=== PATIENT | female | born 1990 | race Two or more races ===

== ENCOUNTER 2024-10-29 18:13 | Emergency (ER) | payer BC, MEDICAID, SELFPAY ==
[2024-10-29 19:01] VITALS: BP 125/82; PULSE 74; RESP 16; TEMP 36.8; O2SAT 98; BMI 25.3
--- NOTE | 2024-10-29 19:02 | XR_ITS ---
Examination: Complete OB ultrasound, less than 14 weeks, transabdominal Date and time of exam: October 29, 2024 2139 hours INDICATIONS: Onset vaginal bleeding today Technique: Obstetrical ultrasound images less than 14 weeks performed via transabdominal imaging Findings: A normal shaped single intrauterine gestation is present in the uterus. pole 2.7 cm corresponds to 9 weeks 3 days gestation Lasix and cardiac motion 164 BPM Adjacent subchorionic hemorrhage 24 x 12 mm Ultrasonographic survey of visible structures unremarkable. Amniotic fluid volume appears appropriate for this estimated gestational age. Right ovary 3.4 cm arterial flow Left ovary 5.7 cm arterial flow 5.6 cm cyst. IMPRESSION: Viable intrauterine gestation 9 weeks 3 days Recommend short term follow-up transvaginal study given the subchorionic hemorrhage
--- NOTE | 2024-10-29 19:04 | EDNOTE_ITS ---
ED OB Contraction Preg RMI/HPI General Chief complaint: Vaginal Bleeding Stated complaint: Possible miscarriage Time Seen by Provider: 10/29/24 18:21 Arrival date/time: 10/29/24 18:13 This is a case of 34-year-old female who came into the emergency room due to pelvic pain and vaginal bleeding today patient took a test and it is positive LMP is unknown patient is irregular 1 para 0 patient denies any fever chills therapies this is a Limitations: no limitations Related Data Allergies Allergy/AdvReac Type Severity Reaction Status Date / Time No Known Drug Allergies Allergy Verified 10/29/24 18:17 Review of Systems Constitutional Constitutional: Reports system reviewed and no additional complaints, except as documented Cardiovascular Cardiovascular: Reports system reviewed and no additional complaints, except as documented Respiratory Respiratory: Reports system reviewed and no additional complaints, except as documented Gastrointestinal Gastrointestinal: Reports system reviewed and no additional complaints, except as documented Genitourinary Genitourinary: Reports abnormal vaginal bleeding, Denies difficulty conceiving, Denies difficulty voiding, Denies dysmenorrhea, Denies dyspareunia and Denies dysuria Musculoskeletal Musculoskeletal: Reports system reviewed and no additional complaints, except as documented Past Medical History Social History SMOKING STATUS: Never smoker ED Exam General Limitations: Present no limitations General appearance: Present alert and in no apparent distress Head Head exam: Present atraumatic Eye Eye exam: Present normal appearance, PERRL and EOMI ENT ENT exam: Present normal exam, normal oropharynx and mucous membranes moist Neck Neck exam: Present normal inspection, full ROM and trachea midline Chest Chest inspection: Present normal inspection and symmetric chest wall rise Respiratory Respiratory exam: Present normal lung sounds bilaterally Cardiovascular Cardiovascular exam: Present regular rate, normal rhythm and normal heart sounds Abdominal Exam Abdominal exam: Present soft, normal bowel sounds and other (No CVA tendernessno cva tenderness); Absent tenderness, guarding, rebound, rigidity, diminished bowel sounds or tenderness at [place]Bur[place]'s Point Extremities Exam Extremities exam: Present normal inspection and full ROM Back Exam Back exam: Present normal inspection and full ROM Neurological Exam Neurological exam: Present alert, oriented X3 and CN II-XII intact Psychiatric Psychiatric exam: Present normal affect and normal mood Skin Skin exam: Present warm, dry, intact and normal color Course Quality Measures none Orders Category Date Time Status US OB <= 14 weeks fetus Stat Exams 10/29/24 19:02 Completed ABO/RH Type Stat Lab 10/29/24 19:10 Completed Beta HCG,Quantitative Stat Lab 10/29/24 19:10 Completed CBC Stat Lab 10/29/24 19:10 Completed CMP [Comprehensive Metabolic Panel] Stat Lab 10/29/24 19:10 Completed Urinalysis Stat Lab 10/29/24 19:29 Completed Vital Signs Vital signs: Vital Signs Temperature 98.2 F 10/29/24 19:01 Pulse Rate 74 10/29/24 19:01 Respiratory Rate 16 10/29/24 19:01 Blood Pressure 125/82 10/29/24 19:01 Pulse Oximetry (%) 98 10/29/24 19:01 Oxygen Delivery Method Room Air 10/29/24 19:01 Oxygen saturation 98% on room air WNL Vaginal Bleeding MDM Narrative MDM Narrative: This is a case of 34-year-old female who came into the emergency room due to vaginal bleeding patient took test and it was positive 1 para 0 patient physical examination patient is awake alert oriented not in distress nontoxic looking abdominal exam benign nonsurgical no tenderness no guarding no rebound no rigidity patient vital signs stable afebrile not tachycardic not tachypneic not in distress patient blood test showed no leukocytosis no anemia kidney liver functions normal no [place] [id number] for patient if positive patient ultrasound showed viable 9 weeks patient was advised to follow-up with PCP in 2 days for evaluation and to be referred to OB hospitality housekeeper for checkup he she was also advised to return to the emergency room in 2 days for evaluation for repeat beta-hCG and pelvic ultrasound no sex pelvic rest was also advised increase water intake checkup and continue multivitamins patient understood verbally the discharge instruction patient agreed with the treatment plan and discharge patient was discharged with stable condition and steady gait Patient data External records reviewed:: [facility] previous records Clinical information provided by:: patient Social determinants that could affect healthcare access:: none Patient has the following chronic illnesses:: None How is presenting disease/condition affected by chronic disease/condition?: no chronic disease Evaluation data The following diagnostics were reviewed and interpreted by me:: lab results and radiology exam(s) Lab and/or radiology exams considered but not ordered:: Reviewed Interpretation Summary: None Medications / Prescriptions Medications or Prescriptions considered but not ordered:: Not given Medication administrations:: None Consultations Consultation(s) initiated? (list below): No Diagnosis Vaginal Bleeding Differential Diagnosis: missed , threatened , dysfunctional uterine bleeding and incomplete Most likely diagnosis given after review of the tests above:: Threatened Admission Indicated Admission indicated?: not indicated Admission Request Was there a request for admission?: No Disposition Plan Disposition Plan: Discharge Discharge Attestation Discharge Attestation: The patient and all family members were given an opportunity to ask questions and understood the discharge instructions. Discharge instructions specifically effects, indications for sooner follow up or return to the emergency department, and the expected course of current diagnosis. Patient condition: Stable Discharge Plan Plan Patient Disposition: HOME (Self Care) Discharge Disposition comment: Stable Prescriptions/Referrals Referrals: Erika Perez MD [Primary Care Provider] - In 1 week Problem List Clinical Impression: , threatened Patient/Caregiver Discharge Instructions Other Activity Instructions:: Follow-up with your PCP in 2 days for reevaluation and to be referred to OB hospitality housekeeper as soon as possible for further evaluation and treatment of threatened and for check it is important to return in the emergency room in 2 days for reevaluation and to have repeat beta- hCG and pelvic ultrasound for any worsening symptoms or any emergent concern call 911 or go to the nearest emergency room no sex until cleared by OB hospitality housekeeper pelvic rest is advised continue to take multivitamins increase oral fluid intake Education Materials: ED Possible Miscarriage ... Print Language: Bahamian Stand Alone Forms: Jessie Award Info., Patient Portal Info Letter PA/TONY Supervising Physician ETHEL/TONY Supervising Physician: DR BATISTA
[2024-10-29 19:26] LABS: Basophils % (Auto) 0 % (0-2.5); Eosinophils # (Auto) 0.1 Thou/mm3 (0.0-0.5); Eosinophils % (Auto) 2 % (0-10); Hemoglobin 11.8 g/dL (12.0-16.0); Immature Granulocytes % (Auto) 1 % (0-0); Immature Granulocytes Auto 0.05 Thou/mm3 (0.00-0.00); Lymphocytes # (Auto) 1.6 Thou/mm3 (1.0-4.8); Lymphocytes % (Auto) 19 % (10-50); Mean Corpuscular HGB Conc 33.7 g/dl (31.0-37.0); Mean Corpuscular Hemoglobin 30.5 pg (25.0-35.0); Mean Corpuscular Volume 90 fL (80-100); Monocytes # (Auto) 0.7 Thou/mm3 (0.0-0.8); Monocytes % (Auto) 8 % (0-12); Neutrophils # (Auto) 5.6 Thou/mm3 (1.8-7.7); Neutrophils % (Auto) 70 % (37-80); Nucleated Red Blood Cell % 0 /100 WBC (0); Platelet Count 210 Thou/mm3 (140-440); RDW Standard Deviation 45.2 fL (36.4-46.3); Red Blood Count 3.87 Miln/mm3 (4.00-5.20); White Blood Count 8.1 Thou/mm3 (3.6-11.0)
[2024-10-29 19:38] LABS: Collection Type, Urine Voided; WBC,Urine 0 /hpf (0-5)
[2024-10-29 19:55] LABS: Alanine Aminotransferase 24 U/L (10-49); Albumin, Serum 4.2 gm/dL (3.5-5.0); Albumin/Globulin Ratio 1.4 (1.2-2.2); Alkaline Phosphatase 56 U/L (46-116); Anion Gap 7 (7-16); Aspartate Amino Transferase 28 U/L (0-34); BUN/Creatinine Ratio 11 Ratio (12-20); Bilirubin,Total 0.2 mg/dL (0.3-1.2); Blood Urea Nitrogen 9 mg/dL (9-23); Calcium 9.1 mg/dL (8.3-10.6); Calcium (Corrected) 9.1 mg/dL (8.5-10.1); Carbon Dioxide 21.7 mMol/L (20.0-31.0); Chloride 106 mMol/L (98-107); Creatinine (Component) 0.8 mg/dL (0.6-1.3); Estimated Creatinine Clearance 98.2 mL/min (>60); Glucose 84 mg/dL (74-106); Osmolality,Calculated 267 (275-295); Potassium 3.7 mMol/L (3.4-5.1); Sodium 135 mMol/L (136-145); Total Protein 7.2 gm/dL (5.7-8.2); eGFR > 60 See Note
[2024-10-29 20:02] LABS: Bacteria,Urine Rare; Bilirubin,Urine Negative (Negative); Blood,Urine 1+ (Negative); Clarity,Urine Clear (Clear/Hazy); Color,Urine Lt-Yellow (Lt Yel-Yel); Glucose, Urine Negative (Negative); Ketones,Urine Negative (Negative); Leukocyte Esterase,Urine Negative (Negative); Nitrite,Urine Negative (Negative); Protein,Urine Negative (Neg - Trace); RBC,Urine 10 /hpf (0-3); Specific Gravity,Urine 1.026 (1.001-1.035); Squamous Epithelial Cell,Urine 1 /hpf (0-5); Urobilinogen,Urine Negative mg/dL (0.0-1.0)
[2024-10-29 20:41] LABS: Beta HCG,Quantitative 100494 mIU/mL (<5.0)
--- NOTE | 2024-10-29 22:29 | EDNOTE_ITS ---
ED OB Contraction Preg RMI/HPI General Chief complaint: Vaginal Bleeding Stated complaint: Possible miscarriage Time Seen by Provider: 10/29/24 18:21 Arrival date/time: 10/29/24 18:13 This is a case of 34-year-old female who came in the emergency room due to vaginal bleeding today with blood clots patient check test and positive LMP unknown 1 para 0 denies any other symptoms denies any urinary symptoms pelvic cramping noted Limitations: no limitations Related Data Allergies Allergy/AdvReac Type Severity Reaction Status Date / Time No Known Drug Allergies Allergy Verified 10/29/24 18:17 Review of Systems Constitutional Constitutional: Reports system reviewed and no additional complaints, except as documented Cardiovascular Cardiovascular: Reports system reviewed and no additional complaints, except as documented Respiratory Respiratory: Reports system reviewed and no additional complaints, except as documented Gastrointestinal Gastrointestinal: Reports system reviewed and no additional complaints, except as documented Genitourinary Genitourinary: Reports as per HPI and Reports abnormal vaginal bleeding Musculoskeletal Musculoskeletal: Reports system reviewed and no additional complaints, except as documented Past Medical History Social History SMOKING STATUS: Never smoker ED Exam General Limitations: Present no limitations General appearance: Present alert and in no apparent distress Eye Eye exam: Present normal appearance, PERRL and EOMI ENT ENT exam: Present normal exam, normal oropharynx and mucous membranes moist Neck Neck exam: Present normal inspection and full ROM Chest Chest inspection: Present normal inspection and symmetric chest wall rise Respiratory Respiratory exam: Present normal lung sounds bilaterally; Absent respiratory distress, wheezes, stridor or accessory muscle use Cardiovascular Cardiovascular exam: Present regular rate and normal rhythm Abdominal Exam Abdominal exam: Present soft; Absent distention, tenderness, guarding, rebound, rigidity, normal bowel sounds or diminished bowel sounds Extremities Exam Extremities exam: Present normal inspection and full ROM Neurological Exam Neurological exam: Present alert, oriented X3, CN II-XII intact and normal gait Course Quality Measures none Orders Category Date Time Status US OB <= 14 weeks fetus Stat Exams 10/29/24 19:02 Completed ABO/RH Type Stat Lab 10/29/24 19:10 Completed Beta HCG,Quantitative Stat Lab 10/29/24 19:10 Completed CBC Stat Lab 10/29/24 19:10 Completed CMP [Comprehensive Metabolic Panel] Stat Lab 10/29/24 19:10 Completed Urinalysis Stat Lab 10/29/24 19:29 Completed Vital Signs Vital signs: Vital Signs Temperature 98.2 F 10/29/24 19:01 Pulse Rate 74 10/29/24 19:01 Respiratory Rate 16 10/29/24 19:01 Blood Pressure 125/82 10/29/24 19:01 Pulse Oximetry (%) 98 10/29/24 19:01 Oxygen Delivery Method Room Air 10/29/24 19:01 Oxygen saturation 98% WNL Vaginal Bleeding MDM Narrative MDM Narrative: This is a case of 34-year-old female who came in the emergency room due to abnormal vaginal bleeding patient is LMP is unknown 1 para 0 associated symptoms is pelvic cramping physical examination patient is awake alert oriented not in distress nontoxic looking abdominal exam is benign nonsurgical no guarding no rebound no rigidity no CVA tenderness no signs and symptoms of sepsis no signs and symptoms of dehydration blood test showed CBC no leukocytosis no anemia CMP no electrolyte imbalance kidney function and liver function is normal urinalysis is normal no urinary tract infection patient is A+ patient beta-hCG is [id number] patient ultrasound showed viable intrauterine with subchorionic hemorrhage 9 weeks at this point I have a long discussion with the patient patient need to see a PCP to be referred to OB plant operator/shift supervisor for further evaluation and treatment and for checkup it is important to return in the emergency room in 2 days for evaluation for repeat beta-hCG and pelvic ultrasound any worsening symptoms or any emergent concerns she will return in the emergency room immediately or call 911 patient is advised to have pelvic rest and no sex until cleared primary care physician she will continue the multiple vitamins and increase water intake patient understood verbally the discharge instruction and agreed with the treatment plan and discharge patient discharged with stable condition with steady gait Patient data External records reviewed:: [facility] previous records Clinical information provided by:: patient Social determinants that could affect healthcare access:: none Patient has the following chronic illnesses:: None How is presenting disease/condition affected by chronic disease/condition?: no chronic disease Evaluation data The following diagnostics were reviewed and interpreted by me:: lab results and radiology exam(s) Lab and/or radiology exams considered but not ordered:: Reviewed Interpretation Summary: Normal no medication Medications / Prescriptions Medications or Prescriptions considered but not ordered:: No medication Medication administrations:: None Consultations Consultation(s) initiated? (list below): No Diagnosis Vaginal Bleeding Differential Diagnosis: missed , threatened and menometrorrhagia Most likely diagnosis given after review of the tests above:: Threatened Admission Indicated Admission indicated?: not indicated Admission Request Was there a request for admission?: No Disposition Plan Disposition Plan: Discharge Discharge Attestation Discharge Attestation: The patient and all family members were given an opportunity to ask questions and understood the discharge instructions. Discharge instructions specifically effects, indications for sooner follow up or return to the emergency department, and the expected course of current diagnosis. Patient condition: Stable Discharge Plan Plan Patient Disposition: HOME (Self Care) Discharge Disposition comment: Stable Prescriptions/Referrals Referrals: Erika Perez MD [Primary Care Provider] - In 1 week Problem List Clinical Impression: , threatened Patient/Caregiver Discharge Instructions Other Activity Instructions:: Follow-up with your PCP in 2 days for reevaluation and to be referred to OB plant operator/shift supervisor as soon as possible for further evaluation and treatment of threatened and for check it is important to return in the emergency room in 2 days for reevaluation and to have repeat beta- hCG and pelvic ultrasound for any worsening symptoms or any emergent concern call 911 or go to the nearest emergency room no sex until cleared by OB plant operator/shift supervisor pelvic rest is advised continue to take multivitamins increase oral fluid intake Education Materials: ED Possible Miscarriage ... Print Language: Albanian Stand Alone Forms: Jessie Award Info., Patient Portal Info Letter ETHEL/TONY Supervising Physician ETHEL/TONY Supervising Physician: DR BATISTA
== END 2024-10-29 22:52 | disposition home or self-care (01) ==
PROVIDERS: Nurse Practitioner Family; Emergency Provider Emergency Medicine; PCP Internal Medicine
DX: O20.0 Threatened abortion (principal); Z3A.00 Weeks of gestation of pregnancy not specified
CPT/HCPCS: 36415; 76801; 80053; 81001; 84702; 85025; 86900; 86901; 99284

== ENCOUNTER → 2025-02-18 | Outpatient (CLI) | payer BC, MEDICAID, SELFPAY ==
--- NOTE | 2025-02-18 14:30 | XR_ITS ---
Examination: Complete OB ultrasound greater than 14 weeks Date and time of exam: February 18, 2025, 1418 hours INDICATIONS: Size dates discrepancy second trimester Findings: Viable intrauterine single fetus with single amniotic sac presentation breech spine maternal left. Cardiac motion 147 BPM. Placenta anterior grade 2. Umbilical cord insertion seen. Amniotic fluid index 14.4 cm. Ovaries obscured by bowel gas.. Composite estimated gestational age based on BPD, head circumference, abdominal circumference, femur length is 26 weeks 2 days. Estimated weight 954 g. Survey of intracranial anatomy, spinal anatomy, abdominal anatomy, four-chamber heart performed with no abnormalities identified. Impression: Viable intrauterine gestation breech presentation.
== END | disposition home or self-care (01) ==
LOC: CDIM 14:08
PROVIDERS: PCP Obstetrics & Gynecology; Referring Provider Obstetrics & Gynecology; Visit Provider Obstetrics & Gynecology
DX: O32.1XX0 Maternal care for breech presentation, not applicable or unspecified (principal); Z3A.26 26 weeks gestation of pregnancy
CPT/HCPCS: 76805

== ENCOUNTER 2025-03-29 10:48 | Outpatient (AMB) | payer BC, MEDICAID, SELFPAY ==
[2025-03-29 10:52] VITALS: BP 126/79; PULSE 84; RESP 16; TEMP 36.3; O2SAT 98; BMI 28.7
--- NOTE | 2025-03-29 10:52 | AMB.OBINITIA ---
Vital Signs 03/29/25 10:52 Height 1.7 m Height Method Stated Weight 83.007 kg Weight Measurement Method Standing Scale BMI 28.7 BP 126/79 Blood Pressure Source Automatic Cuff Blood Pressure Location Left Upper Arm Position Sitting Respiration 16 Pulse 84 Pulse Source Monitor Temp 97.4 F Temp Source Oral Pulse Oximetry (%) 98 Oxygen Delivery Method Room Air Allergies/Home Meds Allergies & Medications Allergies No Known Drug Allergies Allergy (Verified 03/29/25 10:57) Medication Reconciliation No Known Home Medications 03/29/25 [History Confirmed 03/29/25] Intake Visit Data Collection New Patient or Established: Established Patient (seen at [facility] within 3 years) Reason for Visit:: TRANSFER INITIAL CARE Seen by Clinical Staff ONLY (RN/MA): No Technology Sales Representative Required: No Do You Feel Safe at Home: Yes Authorities Contacted: N/A PCP or OBGYN visit in last 3 months: Yes Hx Now: Yes Are you currently on any form of Control: No Last menstrual period: 08/13/24 Pain Present Currently: No Pain Scale Used: Isaacs-Villanueva/Numerical Pain scale:: 0 Smoking Status Smoking Status: Never smoker Questionnaires Covid-19 Vaccine Questionnaire Has patient been vacinated for Covid-19 Have you been vacinated for Covid-19: No PHQ-9 PHQ-2 Over the last 2 weeks, how often have you been bothered by any of the following problems? 1. Little interest or pleasure in doing things: not at all 2. Feeling down, depressed, or hopeless: not at all Total score: 0 PHQ-9 3. Trouble falling or staying asleep, or sleeping too much: Not at all 4. Feeling tired or having little energy: Not at all 5. Poor appetite or overeating: Not at all 6. Feeling bad about yourself - or that you are a failure or have let yourself or your family down: Not at all 7. Trouble concentrating on things, such as reading the newspaper or watching television: Not at all 8. Moving or speaking so slowly that other people could have noticed? - Or the opposite - being so fidgety or restless that you have been moving around a lot more than usual: not at all 9. Thoughts that you would be better off or of hurting yourself in some way: Not at all Total score: 0 Source: Developed by Drs. Aiden Meraz, Keisha Bush, Saul Gutierrez and colleagues, with an educational ziyad from [employer]. Depression screen completed yes Social History Living Situation History Lives With: Family Housing: House Tobacco History Smoking Status: Never smoker Second Hand Smoke Exposure: No Alcohol History Alcohol Intake: Never Domestic Abuse History Do You Feel Safe at Home: Yes History of Present Illness HPI Narrative Debbie Chacon, , presents for routine visit at 31 weeks gestation. No contractions, LOF, VB and reports good FM. Denies AL, VC, and epigastric pain. 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 - details: - Last menstrual period: August 13, 2024 - Estimated due date: May 31, 2025 (based on 4-lurp-7-day ultrasound) - Fetus gender: Male - Patient reports no specific complaints or symptoms - Adherence to care evident from regular lab work and ultrasounds - Ultrasound (10/29/2024): Gestational age 9 weeks and 3 days, EAGLE 05/31/2025 - Date: 12/01/2024 (1st OB panel) - Urinalysis: Within normal limits - NIPT: Negative for trisomy, sex male - CBC: Hemoglobin 11.4 g/dL, Hematocrit 35.1%, Platelets 200 - Urine drug screen: Negative - Hepatitis A, B, and C: Negative - Gonorrhea and chlamydia: Negative - Blood group: A positive - Rh factor: Positive - RPR: Nonreactive - Hemoglobin A1C: 4.8% - Rubella: Immune - HIV: Nonreactive - Date: 01/11/2025 (2nd lab panel) - SMA: Negative - AFP: Negative - CF screening: Positive, patient heterozygous for one cystic fibrosis gene - Date: 02/18/2025 - CBC: Hemoglobin 11.7 g/dL, Hematocrit 36.6%, Platelets 205 - Urinalysis: Within normal limits - Gonorrhea and chlamydia: Negative - RPR: Nonreactive - Gestational diabetes one-hour screen: 130 mg/dL OB Initial Visit OB Flowsheet OB Flowsheet Initial Weight: Not Recorded Date <del>?</del> EGA Weight BP Alb Glu CTX Pres Fundal ht FHR Mov Dilation Station Effacement Hx Notes Visit Note 03/29/25 <del>?</del> 31w 0d 83.007 kg 126/79 absent cephalic 143 Debbie Chacon, at 31 weeks gestation, presents for transfer of care from Dr. Torres. EAGLE is 05/31/2025 based on a 9w3d ultrasound. has been uncomplicated. 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 heart rate today is 143 bpm. Labs including NIPT, CBC, OB panel, STI screen, and glucose tolerance test (130) are normal. Recent ultrasound suggests fetus may be >9 lbs at term. Patient is expecting a male infant named Colby. Intrauterine at 31 weeks: Continue care. Follow-up in 2 weeks, then weekly at 36 weeks. Plan for ultrasound on 05/06/2025 to assess growth. GBS culture and cervical check at 36 weeks. Consider induction at 39 weeks if large for gestational age. CF carrier status: No further testing needed (partner negative). Labs: All labs within normal limits. Continue routine monitoring. Menstrual History Menstrual reliability: definite Flow: normal Menstrual regularity: irregular Monthly: No Age at menarche: 15 On control pills at conception: No Associated symptoms (LMP): Denies amenorrhea, nausea, vomiting, fatigue, breast tenderness, urinary frequency, irritability, bloating or other OB History : 2 Para: 1 Infection History & Risk Evaluation History of STDs: none Genetic Screening & History Genetic Screening/Teratology Counseling - Includes patient, baby's father, or anyone in either family with: 1. Patient's age 35 years or older as of estimated date of delivery: No 2. Thalassemia (Bengali, Ukrainian, Mediterranean, or Background); MCV less than 80: No 3. Neural Tube Defect (Meningomyelocele, Spina Bifida, or Anencephaly): No 4. Congenital Heart Defect: No 5. Down Syndrome: No 6. Saúl-Sachs (Ashkenazi Jew, Cajun, [place]an [place]): No 7. Petrona Disease (Ashkenazi Jew): No 8. Familial Dysautonomia (Ashkenazi Jew): No 9. Sickle Cell Disease or Trait (): No 10. Hemophilia or other blood disorders: No 11. Muscular Dystrophy: No 12. Cystic Fibrosis: No 13. Mary Beth's Chorea: No 14. Mental Retardation/Autism: No 15. Other inherited genetic or chromosomal disorder: No 16. Maternal Metabolic Disorder (EG,TYPE 1 Diabetes, PKU): No 17. Patient or baby's father had a child with defects not listed above: No 18. Recurrent loss or a stillbirth: No 19. Medications (including supplements, vitamins, herbs or otc drugs)/illicit/recreational drugs/alcohol since last menstrual period: No 20. Any other: No Infection History 1. Live with someone with TB or exposed to TB: No 2. Rash or viral illness since last menstrual period: No 3. Hepatitis B,C: No Other (see comments) Source: [employer] Review of Systems Constitutional Constitutional: Denies fatigue Gastrointestinal Gastrointestinal: Denies bloating, Denies nausea and Denies vomiting Genitourinary Genitourinary: Denies amenorrhea and Denies urinary frequency Psychiatric Psychiatric: Denies irritability Endocrine Endocrine: Denies fatigue Exam General Limitations: no limitations General Appearance: alert, in no apparent distress and comfortable Head Head exam: atraumatic and normocephalic Eye Eye exam: Present normal appearance, PERRL and EOMI Neck Neck exam: Present normal inspection and full ROM Chest Chest inspection: Present normal inspection and symmetric chest wall rise; Absent tenderness Resp Respiratory exam: Present normal lung sounds bilaterally; Absent respiratory distress Card Cardiovascular exam: Present regular rate and normal rhythm Abdominal Abdominal exam: Present soft and normal bowel sounds; Absent tenderness, guarding, rebound or rigidity Neuro Neurological exam: Present alert and oriented X3 Psych Psychiatric exam: Present normal affect Office Procedures OBC Clinic LOC & Office Proc's Nursing/Assessment Patient Status: Established Patient OB Clinic Nursing Assessment: Medication Reconciliation, Update PMH in EMR and Vital Signs OB Clinic Coordination of Care: Complex Care and Chronic Disease 1-5, Consent,records obtained, informed consent, Education Simp Pt/Fam, 1 Ins Authorization, Lab and Imaging orders, Results/Orders obtained and Staff clarify orders Special Needs: Heart tones Established Patient Charge Established Patient Point Assignment: 150 Established Patient Point Charge: EP Level 4 (120-155) Assessment & Plan Diagnosis / Problem List (1) Supervision of high risk , unspecified, third trimester: Status: Acute (2) Cystic fibrosis carrier: Status: Acute (3) Maternal care for excessive growth, third trimester, not applicable or unspecified: Status: Acute Plan Problem List - , 31 weeks gestation - Cystic fibrosis carrier Assessment at 31 weeks gestation based on 4-afzg-0-day ultrasound (EAGLE 05/31/2025), transferring care. Cystic fibrosis carrier (heterozygous for one CF gene). Labs within normal limits: NIPT negative for trisomy, hemoglobin 11.7, hematocrit 36.6, platelets 205, urinalysis WNL, GBS/chlamydia negative, RPR nonreactive, gestational diabetes screen 130. Blood type A positive, Rh positive. male gender confirmed. Normal heart rate at 143 bpm. Potential macrosomia suspected, with estimated weight of 9 pounds. Plan - Follow-up appointment in 2 weeks - Ultrasound scheduled for [facility] 06, 2025 at [facility] to check baby's growth - Group B strep culture swab at 36 weeks - Weekly appointments starting from 36 weeks - Cervical check, membrane sweep, and consideration of induction at 39 weeks - Delivery to be attended by Dr. De Souza, Dr. Garcia, or Dr. Young, depending on who is electronic publishing specialist 1. Progress Reviewed gestational age, growth, and heart rate. Planned frequent visits (every 2 weeks until 36 weeks, then weekly). 2. Instructed patient to monitor movements and report decreases immediately. 3. Testing Counseled on routine third-trimester labs per guidelines. Discussed potential need for ultrasound or monitoring based on risk factors. 4. Preeclampsia Precaution Educated on preeclampsia signs: severe headache, vision changes, right upper quadrant pain, sudden swelling. Advised urgent reporting of symptoms and discussed blood pressure monitoring if high risk. 5. Labor Precautions Reviewed labor signs: regular contractions, pelvic pressure, back pain, bleeding, or fluid leakage. Instructed to seek immediate care for these symptoms. 6. Lifestyle and Delivery Preparation Reinforced vitamins, nutrition, and safe activity. Discussed plan, pain management, and . Advised on labor preparation (e.g., hospital bag) and expectations. 7. Psychosocial Support Assessed emotional well-being and offered resources for mental health or parenting support.
== END 2025-03-29 11:11 | disposition home or self-care (01) ==
LOC: HODSOBC 10:48
PROVIDERS: Supervising Provider Obstetrics & Gynecology; Visit Provider Obstetrics & Gynecology
DX: O09.893 Supervision of other high risk pregnancies, third trimester (principal); O36.63X0 Maternal care for excessive fetal growth, third trimester, not applicable or unspecified; Z14.1 Cystic fibrosis carrier; Z3A.31 31 weeks gestation of pregnancy
CPT/HCPCS: 99214; G0463

== ENCOUNTER 2025-04-19 11:10 | Outpatient (AMB) | payer BC, MEDICAID, SELFPAY ==
[2025-04-19 11:23] VITALS: BP 109/70; PULSE 96; RESP 18; TEMP 36.2; O2SAT 98; BMI 29.7
--- NOTE | 2025-04-19 11:23 | OBCLNT_ITS ---
Vital Signs 04/19/25 11:23 Height 1.7 m Height Method Stated Weight 85.899 kg Weight Measurement Method Standing Scale BMI 29.7 BP 109/70 Blood Pressure Source Automatic Cuff Blood Pressure Location Left Upper Arm Position Sitting Respiration 18 Pulse 96 Pulse Source Monitor Temp 97.2 F Temp Source Oral Pulse Oximetry (%) 98 Oxygen Delivery Method Room Air Allergies/Home Meds Allergies & Medications Allergies No Known Drug Allergies Allergy (Verified 04/19/25 11:25) Medication Reconciliation No Known Home Medications 03/29/25 [History Confirmed 04/19/25] Intake Visit Data Collection New Patient or Established: Established Patient (seen at [facility] within 3 years) Reason for Visit:: OBC Seen by Clinical Staff ONLY (RN/MA): No Senior Sql Server Developer Required: No Do You Feel Safe at Home: Yes Authorities Contacted: N/A PCP or OBGYN visit in last 3 months: Yes Date of Last PCP or OBGYN visit: 03/29/25 Hx Now: Yes Are you currently on any form of Control: No Pain Present Currently: No Pain Scale Used: Isaacs-Villanueva/Numerical Pain scale:: 0 Smoking Status Smoking Status: Never smoker Immunizations Flu Vaccine in the Last 12 Months: No Flu Vaccine Exclusion Criteria: No Exclusion Criteria Questionnaires Covid-19 Vaccine Questionnaire Has patient been vacinated for Covid-19 Have you been vacinated for Covid-19: No PHQ-9 PHQ-2 Over the last 2 weeks, how often have you been bothered by any of the following problems? 1. Little interest or pleasure in doing things: not at all 2. Feeling down, depressed, or hopeless: not at all Total score: 0 PHQ-9 3. Trouble falling or staying asleep, or sleeping too much: Not at all 4. Feeling tired or having little energy: Not at all 5. Poor appetite or overeating: Not at all 6. Feeling bad about yourself - or that you are a failure or have let yourself or your family down: Not at all 7. Trouble concentrating on things, such as reading the newspaper or watching television: Not at all 8. Moving or speaking so slowly that other people could have noticed? - Or the opposite - being so fidgety or restless that you have been moving around a lot more than usual: not at all 9. Thoughts that you would be better off or of hurting yourself in some way: Not at all Total score: 0 If you checked off any problems, how difficult have these problems made it for you to do your work, take care of things at home, or get along with other people?: not difficult at all Source: Developed by Drs. Aiden Meraz, Keisha Bush, Saul Gutierrez and colleagues, with an educational ziyad from [employer]. Depression screen completed yes Social History Living Situation History Lives With: Family Housing: House Tobacco History Smoking Status: Never smoker Second Hand Smoke Exposure: No Alcohol History Alcohol Intake: Never Domestic Abuse History Do You Feel Safe at Home: Yes Care OB Visit Log OB Flowsheet Initial Weight: Not Recorded Date -?-?-?-?-?-?-?-?-?-?-?-?- EGA Weight BP Alb Glu CTX Pres Fundal ht FHR Mov Dilation Station Effacement Hx Notes Visit Note 03/29/25 -?-?-?-?-?-?-?-?-?-?-?-?- 31w 0d 83.007 kg 126/79 absent cephalic 143 Debbie Chacon, at 31 weeks gestation, presents for transfer of care from Dr. Torres. EAGLE is 05/31/2025 based on a 9w3d ultrasound. has been uncomplicated. 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 heart rate today is 143 bpm. Labs including NIPT, CBC, OB panel, STI screen, and glucose tolerance test (130) are normal. Recent ultrasound suggests fetus may be >9 lbs at term. Patient is expecting a male named Colby. Intrauterine at 31 weeks: Continue care. Follow-up in 2 weeks, then weekly at 36 weeks. Plan for ultrasound on 05/06/2025 to assess growth. GBS culture and cervical check at 36 weeks. Consider induction at 39 weeks if large for gestational age. CF carrier status: No further testing ne eded (partner negative). Labs: All labs within normal li mits. Continue routine monitoring. 04/19/25 -?-?-?-?-?-?-?-?-?-?-?-?- 34w 0d 85.899 kg 109/70 absent cephalic 145 - Debbie Chacon is a 2 para 1 female at 34 weeks and 0 days gestation presenting for routine visit. - She is a cystic fibrosis carrier. - She reports no contractions or issues. - She has work-related paperwork that ne eds to be completed with a requested start date of May 06. - G BS culture to be performed at next appointment - Follow-up appointment scheduled in 2 w eeks - Work forms completed with start date o f May 06, extending to 6 weeks with ability to amend dates as needed EAGLE Calculator Estimated Delivery Date Method Current WG Current Estimate 05/31/25 Ultrasound #1 34w 0d Other Estimates 05/20/25 LMP (Certain) 35w 4d 05/25/25 Ultrasound #2 34w 6d Notes Visit Date: 03/29/25 Last Updated by: Eldon De Souza MD - Ultrasound (10/29/2024): Gestational age 9 weeks and 3 days, EAGLE 05/31/2025 - Date: 12/01/2024 (1st OB panel) - Urinalysis: Within normal limits - NIPT: Negative for trisomy, sex male - CBC: Hemoglobin 11.4 g/dL, Hematocrit 35.1%, Platelets 200 - Urine drug screen: Negative - Hepatitis A, B, and C: Negative - Gonorrhea and chlamydia: Negative - Blood group: A positive - Rh factor: Positive - RPR: Nonreactive - Hemoglobin A1C: 4.8% - Rubella: Immune - HIV: Nonreactive - Date: 01/11/2025 (2nd lab panel) - SMA: Negative - AFP: Negative - CF screening: Positive, patient heterozygous for one cystic fibrosis gene - Date: 02/18/2025 - CBC: Hemoglobin 11.7 g/dL, Hematocrit 36.6%, Platelets 205 - Urinalysis: Within normal limits - Gonorrhea and chlamydia: Negative - RPR: Nonreactive - Gestational diabetes one-hour screen: 130 mg/dL Office Procedures OBC Clinic LOC & Office Proc's Nursing/Assessment Patient Status: Established Patient OB Clinic Nursing Assessment: Medication Reconciliation, Update PMH in EMR and Vital Signs OB Clinic Coordination of Care: Consent,records obtained, informed consent, Education Simp Pt/Fam, Lab and Imaging orders, Results/Orders obtained and Staff clarify orders Special Needs: Heart tones Established Patient Charge Established Patient Point Assignment: 110 Established Patient Point Charge: EP Level 3 (80-115) Assessment & Plan Diagnosis / Problem List (1) Maternal care for excessive growth, third trimester, not applicable or unspecified: Status: Acute (2) Cystic fibrosis carrier: Status: Acute (3) Supervision of high risk , unspecified, third trimester: Status: Acute Plan Problem List - Cystic fibrosis carrier - at 34 weeks gestation Plan - GBS culture to be performed at next appointment - Follow-up appointment scheduled in 2 weeks - Work forms completed with start date of May 06, extending to 6 weeks with ability to amend dates as needed 1. Progress Reviewed gestational age, growth, and heart rate. Planned frequent visits (every 2 weeks until 36 weeks, then weekly). 2. Instructed patient to monitor movements and report decreases immediately. 3. Testing Counseled on routine third-trimester labs per guidelines. Discussed potential need for ultrasound or monitoring based on risk factors. 4. Preeclampsia Precaution Educated on preeclampsia signs: severe headache, vision changes, right upper quadrant pain, sudden swelling. Advised urgent reporting of symptoms and discussed blood pressure monitoring if high risk. 5. Labor Precautions Reviewed labor signs: regular contractions, pelvic pressure, back pain, bleeding, or fluid leakage. Instructed to seek immediate care for these symptoms. 6. Lifestyle and Delivery Preparation Reinforced vitamins, nutrition, and safe activity. Discussed plan, pain management, and . Advised on labor preparation (e.g., hospital bag) and expectations. 7. Psychosocial Support Assessed emotional well-being and offered resources for mental health or parenting support.
== END 2025-04-19 11:37 | disposition home or self-care (01) ==
LOC: HODSOBC 11:10
PROVIDERS: Supervising Provider Obstetrics & Gynecology; Visit Provider Obstetrics & Gynecology
DX: O09.893 Supervision of other high risk pregnancies, third trimester (principal); O36.63X0 Maternal care for excessive fetal growth, third trimester, not applicable or unspecified; Z14.1 Cystic fibrosis carrier; Z3A.34 34 weeks gestation of pregnancy
CPT/HCPCS: 99213; G0463

== ENCOUNTER 2025-05-04 08:14 | Outpatient (AMB) | payer BC, MEDICAID, SELFPAY ==
[2025-05-04 08:36] VITALS: BP 107/71; PULSE 86; RESP 16; TEMP 36.6; O2SAT 97; BMI 30.4
--- NOTE | 2025-05-04 08:36 | OBCLNT_ITS ---
Vital Signs 05/04/25 08:36 Height 1.7 m Height Method Stated Weight 88.054 kg Weight Measurement Method Standing Scale BMI 30.4 BP 107/71 Blood Pressure Source Automatic Cuff Blood Pressure Location Left Upper Arm Position Sitting Respiration 16 Pulse 86 Pulse Source Monitor Temp 97.8 F Temp Source Oral Pulse Oximetry (%) 97 Oxygen Delivery Method Room Air Allergies/Home Meds Allergies & Medications Allergies No Known Drug Allergies Allergy (Verified 05/04/25 08:37) Medication Reconciliation No Known Home Medications 03/29/25 [History Confirmed 05/04/25] Intake Visit Data Collection New Patient or Established: Established Patient (seen at [facility] within 3 years) Reason for Visit:: CARE/ NEEDS GBS Seen by Clinical Staff ONLY (RN/MA): No Utilities Ground Worker Required: No Do You Feel Safe at Home: Yes Authorities Contacted: N/A PCP or OBGYN visit in last 3 months: Yes Hx Now: Yes Are you currently on any form of Control: No Pain Present Currently: No Pain Scale Used: Isaacs-Villanueva/Numerical Pain scale:: 0 Smoking Status Smoking Status: Never smoker Immunizations Flu Vaccine in the Last 12 Months: Yes Flu Vaccine Exclusion Criteria: Already Received Questionnaires Covid-19 Vaccine Questionnaire Has patient been vacinated for Covid-19 Have you been vacinated for Covid-19: Yes PHQ-9 PHQ-2 Over the last 2 weeks, how often have you been bothered by any of the following problems? 1. Little interest or pleasure in doing things: not at all 2. Feeling down, depressed, or hopeless: not at all Total score: 0 PHQ-9 3. Trouble falling or staying asleep, or sleeping too much: Not at all 4. Feeling tired or having little energy: Not at all 5. Poor appetite or overeating: Not at all 6. Feeling bad about yourself - or that you are a failure or have let yourself or your family down: Not at all 7. Trouble concentrating on things, such as reading the newspaper or watching television: Not at all 8. Moving or speaking so slowly that other people could have noticed? - Or the opposite - being so fidgety or restless that you have been moving around a lot more than usual: not at all 9. Thoughts that you would be better off or of hurting yourself in some way: Not at all Total score: 0 Source: Developed by Drs. Aiden Meraz, Keisha Bush, Saul Gutierrez and colleagues, with an educational ziyad from [employer]. Depression screen completed yes Social History Living Situation History Lives With: Family Housing: House Tobacco History Smoking Status: Never smoker Second Hand Smoke Exposure: No Alcohol History Alcohol Intake: Never Domestic Abuse History Do You Feel Safe at Home: Yes Care OB Visit Log OB Flowsheet Initial Weight: Not Recorded Date -?-?-?-?-?-?-?-?-?-?-?-?- EGA Weight BP Alb Glu CTX Pres Fundal ht FHR Mov Dilation Station Effacement Hx Notes Visit Note 03/29/25 -?-?-?-?-?-?-?-?-?-?-?-?- 31w 0d 83.007 kg 126/79 absent cephalic 143 Debbie Chacon, at 31 weeks gestation, presents for transfer of care from Dr. Torres. EAGLE is 05/31/2025 based on a 9w3d ultrasound. has been uncomplicated. 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 heart rate today is 143 bpm. Labs including NIPT, CBC, OB panel, STI screen, and glucose tolerance test (130) are normal. Recent ultrasound suggests fetus may be >9 lbs at term. Patient is expecting a male named Colby. Intrauterine at 31 weeks: Continue care. Follow-up in 2 weeks, then weekly at 36 weeks. Plan for ultrasound on 05/06/2025 to assess growth. GBS culture and cervical check at 36 weeks. Consider induction at 39 weeks if large for gestational age. CF carrier status: No further testing ne eded (partner negative). Labs: All labs within normal li mits. Continue routine monitoring. 04/19/25 -?-?-?-?-?-?-?-?-?-?-?-?- 34w 0d 85.899 kg 109/70 absent cephalic 145 - Debbie Chacon is a 2 para 1 female at 34 weeks and 0 days gestation presenting for routine visit. - She is a cystic fibrosis carrier. - She reports no contractions or issues. - She has work-related paperwork that ne eds to be completed with a requested start date of May 06. - G BS culture to be performed at next appointment - Follow-up appointment scheduled in 2 w eeks - Work forms completed with start date o f May 06, extending to 6 weeks with ability to amend dates as needed 05/04/25 -?-?-?-?-?-?-?--?-?-?-?-?- 36w 1d 88.054 kg 107/71 absent cephalic 150 - She reports that the baby is active. - She denies any leaking or bleeding. - weight was estimated at 6 pounds 14 ounces at current gestational age. - Baby is noted to be in head-down posit ion, which represents a change from the previous visit when the baby was not head-down. - Continue weekly visits - Obtain and scan [facility] Repo rt - Patient to self-collect GBS swab at [facility] - Complete and sign family medical leave paperwork for patient's employer ([employer]) - Schedule next appointment for followin g week EAGLE Calculator Estimated Delivery Date Method Current WG Current Estimate 05/31/25 Ultrasound #1 36w 1d Other Estimates 05/20/25 LMP (Certain) 37w 5d 05/25/25 Ultrasound #2 37w 0d Notes Visit Date: 03/29/25 Last Updated by: Eldon De Souza MD - Ultrasound (10/29/2024): Gestational age 9 weeks and 3 days, EAGLE 05/31/2025 - Date: 12/01/2024 (1st OB panel) - Urinalysis: Within normal limits - NIPT: Negative for trisomy, sex male - CBC: Hemoglobin 11.4 g/dL, Hematocrit 35.1%, Platelets 200 - Urine drug screen: Negative - Hepatitis A, B, and C: Negative - Gonorrhea and chlamydia: Negative - Blood group: A positive - Rh factor: Positive - RPR: Nonreactive - Hemoglobin A1C: 4.8% - Rubella: Immune - HIV: Nonreactive - Date: 01/11/2025 (2nd lab panel) - SMA: Negative - AFP: Negative - CF screening: Positive, patient heterozygous for one cystic fibrosis gene - Date: 02/18/2025 - CBC: Hemoglobin 11.7 g/dL, Hematocrit 36.6%, Platelets 205 - Urinalysis: Within normal limits - Gonorrhea and chlamydia: Negative - RPR: Nonreactive - Gestational diabetes one-hour screen: 130 mg/dL Office Procedures OBC Clinic LOC & Office Proc's Nursing/Assessment Patient Status: Established Patient OB Clinic Nursing Assessment: Medication Reconciliation, Update PMH in EMR and Vital Signs OB Clinic Coordination of Care: Complex Care and Chronic Disease 1-5, Consent,records obtained, informed consent, Education Simp Pt/Fam, 1 Ins Authorization, Lab and Imaging orders, Results/Orders obtained and Staff clarify orders Special Needs: Heart tones Miscellaneous Interventions: Culture Specimen Collection Established Patient Charge Established Patient Point Assignment: 165 Established Patient Point Charge: EP Level 5 (160-above) Assessment & Plan Diagnosis / Problem List (1) Maternal care for excessive growth, third trimester, not applicable or unspecified: Status: Acute (2) Supervision of high risk , unspecified, third trimester: Status: Acute (3) Cystic fibrosis carrier: Status: Acute Plan Problem List - Cystic fibrosis carrier - Suspected macrosomia Assessment 36-week and 1-day patient with suspected macrosomia, with estimated weight of 6 pounds 14 ounces at current gestational age. Patient is a cystic fibrosis carrier. heart rate is 135 bpm, which is within normal limits. Fetus is in vertex presentation (head down position). Patient reports no leaking or bleeding. Patient denies any concerning symptoms and reports active movement. Plan - Continue weekly visits - Obtain and scan [facility] Report - Patient to self-collect GBS swab at vaginal entrance - Complete and sign family medical leave paperwork for patient's employer ([employer]) - Schedule next appointment for following week 1. Progress Reviewed gestational age (36 weeks 1 day), growth (estimated weight 6 pounds 14 ounces with suspected macrosomia), and heart rate (135 bpm, normal). Planned frequent visits (weekly from this point forward). 2. Instructed patient to monitor movements and report decreases immediately. 3. Testing Group B Strep swab performed by patient self-collection. [facility] report to be obtained and reviewed. 4. Preeclampsia Precaution Educated on preeclampsia signs: severe headache, vision changes, right upper quadrant pain, sudden swelling. Advised urgent reporting of symptoms and discussed blood pressure monitoring if high risk. 5. Labor Precautions Reviewed labor signs including bleeding and fluid leakage. Patient denied any leaking or bleeding. 6. Lifestyle and Delivery Preparation Discussed delivery plan given suspected macrosomia - trial of labor recommended with section consideration if vaginal delivery unsu ccessful. Confirmed vertex presentation. 7. Psychosocial Support Assisted with completion of family medical leave paperwork for work ([employer]).
== END 2025-05-04 08:55 | disposition home or self-care (01) ==
LOC: HODSOBC 08:14
PROVIDERS: Supervising Provider Obstetrics & Gynecology; Visit Provider Obstetrics & Gynecology
DX: O09.893 Supervision of other high risk pregnancies, third trimester (principal); O36.63X0 Maternal care for excessive fetal growth, third trimester, not applicable or unspecified; Z14.1 Cystic fibrosis carrier; Z3A.36 36 weeks gestation of pregnancy
CPT/HCPCS: 99215; G0463

== ENCOUNTER 2025-05-13 08:23 | Outpatient (AMB) | payer BC, MEDICAID, SELFPAY ==
[2025-05-13 08:30] VITALS: BP 122/77; PULSE 77; RESP 14; TEMP 36.3; O2SAT 96; BMI 30.7
--- NOTE | 2025-05-13 08:30 | OBCLNT_ITS ---
Vital Signs 05/13/25 08:30 Height 1.7 m Height Method Stated Weight 88.961 kg Weight Measurement Method Standing Scale BMI 30.7 BP 122/77 Blood Pressure Source Automatic Cuff Blood Pressure Location Left Upper Arm Position Sitting Respiration 14 Pulse 77 Pulse Source Monitor Temp 97.3 F Temp Source Oral Pulse Oximetry (%) 96 Oxygen Delivery Method Room Air Allergies/Home Meds Allergies & Medications Allergies No Known Drug Allergies Allergy (Verified 06/01/25 00:14) Medication Reconciliation vit no.95-ferrous fumarate 28 mg-folic acid 800 mcg tablet () 1 tab PO QDAY 05/31/25 [History Confirmed 06/01/25] acetaminophen 325 mg tablet 650 mg (2 x 325 mg) PO Q4H PRN See Comments #60 tabs 06/02/25 [Rx] ibuprofen 400 mg tablet 800 mg (2 x 400 mg) PO Q8H PRN See Comments #60 tabs 06/02/25 [Rx] Immunizations Immunizations Flu Vaccine in the Last 12 Months: No Flu Vaccine Exclusion Criteria: Refused by Patient Care OB Visit Log OB Flowsheet Initial Weight: Not Recorded Date -?-?-?-?-?-?-?-?-?-?-?-?- EGA Weight BP Alb Glu CTX Pres Fundal ht FHR Mov Dilation Station Effacement Hx Notes Visit Note 03/29/25 -?-?-?-?-?-?-?-?-?-?-?-?- 31w 0d 83.007 kg 126/79 absent cephalic 143 Debbie Chacon, at 31 weeks gestation, presents for transfer of care from Dr. Torres. EAGLE is 05/31/2025 based on a 9w3d ultrasound. has been uncomplicated. 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 heart rate today is 143 bpm. Labs including NIPT, CBC, OB panel, STI screen, and glucose tolerance test (130) are normal. Recent ultrasound suggests fetus may be >9 lbs at term. Patient is expecting a male infant named Colby. Intrauterine pre gnancy at 31 weeks: Continue care. Follow-up in 2 weeks, then weekly at 36 weeks. Plan for ultrasound on 05/06/2025 to assess growth. GBS culture and cervical check at 36 weeks. Consider induction at 39 weeks if large for gestational age. CF carrier status: No further testing ne eded (partner negative). Labs: All labs within normal li mits. Continue routine monitoring. 04/19/25 -?-?-?-?-?-?-?-?-?-?-?-?- 34w 0d 85.899 kg 109/70 absent cephalic 145 - Debbie Chacon is a 2 para 1 female at 34 weeks and 0 days gestation presenting for routine visit. - She is a cystic fibrosis carrier. - She reports no contractions or issues. - She has work-related paperwork that ne eds to be completed with a requested start date of May 06. - G BS culture to be performed at next appointment - Follow-up appointment scheduled in 2 w eeks - Work forms completed with start date o f May 06, extending to 6 weeks with ability to amend dates as needed 05/04/25 -?-?-?-?-?-?-?-?-?-?-?-?- 36w 1d 88.054 kg 107/71 absent cephalic 150 - She reports that the baby is active. - She denies any leaking or bleeding. - weight was estimated at 6 pounds 14 ounces at current gestational age. - Baby is noted to be in head-down posit ion, which represents a change from the previous visit when the baby was not head-down. - Continue weekly visits - Obtain and scan [facility] rt - Patient to self-collect GBS swab at [facility] - Complete and sign family medical leave paperwork for patient's employer ([employer]) - Schedule next appointment for followin g week 05/13/25 -?-?-?-?-?-?-?-?-?-?-?-?- 37w 3d 88.961 kg 122/77 absent cephalic 142 No contractions, LOF, VB and reports good FM. Denies AL, VC, and epigastric pain. - Follow up in one week - Check for dilatation once patient reac hes 39 weeks gestation 05/18/25 -?-?-?-?-?-?-?-?-?-?-?-?- 38w 1d 90.378 kg 115/72 absent cephalic 38 145 - She reports the baby is active and denies any signs of labor onset. - She denies contractions that are close r than 5 minutes apart. - She denies any leaking of fluid or ble eding. - She denies decreased movement lasting more than 1-2 hours a t a time. - Follow up next week for routine visit - At next appointment, will check cervix and perform membrane sweep to help with labor - Return to hospital if contractions are closer than 5 minutes apart, any leaking, any bleeding, or if baby is not active for more than 1-2 hours at a time - If baby is less active, try to stimula te movement by drinking something sweet, playing music on abdomen, or using vibration - Complete registration at hospital main door window with ID and insurance (takes 2 minutes) 05/27/25 -?-?-?-?-?-?-?-?-?-?-?-?- 39w 3d 89.074 kg 126/82 absent cephalic 40 155 - She reports no contractions at this time. - She describes the baby as active. - She reports back pain that has limited her walking activity. - States she hasn't been walking as mu due to back discomfort but acknowledges she needs to start walking more. - She has a bouncing ball available for exercises. - She denies going into labor during rec ent birthdays as she had previously stated she would not deliver on those dates. - Schedule induction at 41 weeks if spontaneous labor does not occur - Continue walking for exercise to help with labor onset - Use birthing ball for 10-15 minutes, 2 -3 times daily to help baby's head engage - Follow up in one week - If labor begins before next appointmen t, proceed to hospital EAGLE Calculator Estimated Delivery Date Method Current WG Current Estimate 05/31/25 Ultrasound #1 42w 2d Other Estimates 05/20/25 LMP (Certain) 43w 6d 05/25/25 Ultrasound #2 43w 1d Notes Visit Date: 03/29/25 Last Updated by: Eldon De Souza MD - Ultrasound (10/29/2024): Gestational age 9 weeks and 3 days, EAGLE 05/31/2025 - Date: 12/01/2024 (1st OB panel) - Urinalysis: Within normal limits - NIPT: Negative for trisomy, sex male - CBC: Hemoglobin 11.4 g/dL, Hematocrit 35.1%, Platelets 200 - Urine drug screen: Negative - Hepatitis A, B, and C: Negative - Gonorrhea and chlamydia: Negative - Blood group: A positive - Rh factor: Positive - RPR: Nonreactive - Hemoglobin A1C: 4.8% - Rubella: Immune - HIV: Nonreactive - Date: 01/11/2025 (2nd lab panel) - SMA: Negative - AFP: Negative - CF screening: Positive, patient heterozygous for one cystic fibrosis gene - Date: 02/18/2025 - CBC: Hemoglobin 11.7 g/dL, Hematocrit 36.6%, Platelets 205 - Urinalysis: Within normal limits - Gonorrhea and chlamydia: Negative - RPR: Nonreactive - Gestational diabetes one-hour screen: 130 mg/dL Office Procedures OBC Clinic LOC & Office Proc's Nursing/Assessment Patient Status: Established Patient OB Clinic Nursing Assessment: Medication Reconciliation, Update PMH in EMR and Vital Signs OB Clinic Coordination of Care: Complex Care and Chronic Disease 1-5, Consent,records obtained, informed consent, Education Simp Pt/Fam, 1 Ins Authorization, Lab and Imaging orders, Results/Orders obtained and Staff clarify orders Special Needs: Heart tones Established Patient Charge Established Patient Point Assignment: 150 Established Patient Point Charge: EP Level 4 (120-155) Assessment & Plan Diagnosis / Problem List (1) Supervision of high risk , unspecified, third trimester: Status: Acute Plan Problem List - at 37 weeks and 3 days gestation Assessment 37-week 3-day gestation with normal heart rate of 142-143 beats per minute and active movement. Recent culture results are negative. Patient reports increased activity, particularly at night. Patient inquired about Shubham-Anderson contractions. Plan - Follow up in one week - Check for dilatation once patient reaches 39 weeks gestation 1. Progress Reviewed gestational age (37 weeks and 3 days), growth, and heart rate (142-143 bpm, normal). Planned frequent visits (every 2 weeks until 36 weeks, then weekly). 2. Instructed patient to monitor movements and report decreases immediately. 3. Testing Counseled on routine third-trimester labs per guidelines (culture results negative). Discussed potential need for ultrasound or monitoring based on risk factors. 4. Preeclampsia Precaution Educated on preeclampsia signs: severe headache, vision changes, right upper quadrant pain, sudden swelling. Advised urgent reporting of symptoms and discussed blood pressure monitoring if high risk. 5. Labor Precautions Reviewed labor signs: regular contractions, pelvic pressure, back pain, bleeding, or fluid leakage. Discussed Harris-Anderson contractions (intermittent contractions that come and go, lasting 10-15 minutes) versus real contractions (getting stronger and closer together). Instructed to seek immediate care for these symptoms. 6. Lifestyle and Delivery Preparation Reinforced vitamins, nutrition, and safe activity. Discussed plan, pain management, and . Advised on labor preparation (e.g., hospital bag) and expectations. Plan to check for dilatation at 39 weeks. 7. Psychosocial Support Assessed emotional well-being and offered resources for mental health or parenting support.
== END 2025-05-13 08:47 | disposition home or self-care (01) ==
PROVIDERS: Supervising Provider Obstetrics & Gynecology; Visit Provider Obstetrics & Gynecology
DX: O09.93 Supervision of high risk pregnancy, unspecified, third trimester (principal); Z3A.37 37 weeks gestation of pregnancy
CPT/HCPCS: 99214; G0463

== ENCOUNTER 2025-05-18 10:49 | Outpatient (AMB) | payer BC, MEDICAID, SELFPAY ==
[2025-05-18 11:21] VITALS: BP 115/72; PULSE 95; RESP 18; TEMP 36.8; O2SAT 98; BMI 31.2
--- NOTE | 2025-05-18 11:21 | OBCLNT_ITS ---
Vital Signs 05/18/25 11:21 Height 1.7 m Height Method Stated Weight 90.378 kg Weight Measurement Method Standing Scale BMI 31.2 BP 115/72 Blood Pressure Source Automatic Cuff Blood Pressure Location Left Upper Arm Position Sitting Respiration 18 Pulse 95 Pulse Source Monitor Temp 98.2 F Temp Source Oral Pulse Oximetry (%) 98 Oxygen Delivery Method Room Air Allergies/Home Meds Allergies & Medications Allergies No Known Drug Allergies Allergy (Verified 05/18/25 11:22) Medication Reconciliation No Known Home Medications 03/29/25 [History Confirmed 05/18/25] Immunizations Immunizations Flu Vaccine in the Last 12 Months: No Flu Vaccine Exclusion Criteria: No Exclusion Criteria Care OB Visit Log OB Flowsheet Initial Weight: Not Recorded Date -?-?-?-?-?-?-?-?-?-?-?-?- EGA Weight BP Alb Glu CTX Pres Fundal ht FHR Mov Dilation Station Effacement Hx Notes Visit Note 03/29/25 -?-?-?-?-?-?-?-?-?-?-?-?- 31w 0d 83.007 kg 126/79 absent cephalic 143 Debbie Chacon, at 31 weeks gestation, presents for transfer of care from Dr. Torres. EAGLE is 05/31/2025 based on a 9w3d ultrasound. has been uncomplicated. 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 heart rate today is 143 bpm. Labs including NIPT, CBC, OB panel, STI screen, and glucose tolerance test (130) are normal. Recent ultrasound suggests fetus may be >9 lbs at term. Patient is expecting a male infant named Colby. Intrauterine at 31 weeks: Continue care. Follow-up in 2 weeks, then weekly at 36 weeks. Plan for ultrasound on 05/06/2025 to assess growth. GBS culture and cervical check at 36 weeks. Consider induction at 39 weeks if large for gestational age. CF carrier status: No further testing ne eded (partner negative). Labs: All labs within normal li mits. Continue routine monitoring. 04/19/25 -?-?-?-?-?-?-?-?-?-?-?-?- 34w 0d 85.899 kg 109/70 absent cephalic 145 - Debbie Chacon is a 2 para 1 female at 34 weeks and 0 days gestation presenting for routine visit. - She is a cystic fibrosis carrier. - She reports no contractions or issues. - She has work-related paperwork that ne eds to be completed with a requested start date of May 06. - G BS culture to be performed at next appointment - Follow-up appointment scheduled in 2 w eeks - Work forms completed with start date o f May 06, extending to 6 weeks with ability to amend dates as needed 05/04/25 -?-?-?-?-?-?-?-?-?-?-?-?- 36w 1d 88.054 kg 107/71 absent cephalic 150 - She reports that the baby is active. - She denies any leaking or bleeding. - weight was estimated at 6 pounds 14 ounces at current gestational age. - Baby is noted to be in head-down posit ion, which represents a change from the previous visit when the baby was not head-down. - Continue weekly visits - Obtain and scan [facility]'s Repo rt - Patient to self-collect GBS swab at [facility] entrance - Complete and sign family medical leave paperwork for patient's employer ([employer]) - Schedule next appointment for followin g week 05/18/25 -?-?-?-?-?-?-?-?-?-?-?-?- 38w 1d 90.378 kg 115/72 absent cephalic 38 145 - She reports the baby is active and denies any signs of labor onset. - She denies contractions that are close r than 5 minutes apart. - She denies any leaking of fluid or ble eding. - She denies decreased movement lasting more than 1-2 hours a t a time. - Follow up next week for routine visit - At next appointment, will check cervix and perform membrane sweep to help with labor - Return to hospital if contractions are closer than 5 minutes apart, any leaking, any bleeding, or if baby is not active for more than 1-2 hours at a time - If baby is less active, try to stimula te movement by drinking something sweet, playing music on abdomen, or using vibration - Complete registration at hospital main door window with ID and insurance (takes 2 minutes) EAGLE Calculator Estimated Delivery Date Method Current WG Current Estimate 05/31/25 Ultrasound #1 38w 3d Other Estimates 05/20/25 LMP (Certain) 40w 0d 05/25/25 Ultrasound #2 39w 2d Notes Visit Date: 03/29/25 Last Updated by: Eldon De Souza MD - Ultrasound (10/29/2024): Gestational age 9 weeks and 3 days, EAGLE 05/31/2025 - Date: 12/01/2024 (1st OB panel) - Urinalysis: Within normal limits - NIPT: Negative for trisomy, sex male - CBC: Hemoglobin 11.4 g/dL, Hematocrit 35.1%, Platelets 200 - Urine drug screen: Negative - Hepatitis A, B, and C: Negative - Gonorrhea and chlamydia: Negative - Blood group: A positive - Rh factor: Positive - RPR: Nonreactive - Hemoglobin A1C: 4.8% - Rubella: Immune - HIV: Nonreactive - Date: 01/11/2025 (2nd lab panel) - SMA: Negative - AFP: Negative - CF screening: Positive, patient heterozygous for one cystic fibrosis gene - Date: 02/18/2025 - CBC: Hemoglobin 11.7 g/dL, Hematocrit 36.6%, Platelets 205 - Urinalysis: Within normal limits - Gonorrhea and chlamydia: Negative - RPR: Nonreactive - Gestational diabetes one-hour screen: 130 mg/dL Office Procedures OBC Clinic LOC & Office Proc's Nursing/Assessment Patient Status: Established Patient OB Clinic Nursing Assessment: Medication Reconciliation, Update PMH in EMR and Vital Signs OB Clinic Coordination of Care: Consent,records obtained, informed consent, Education Simp Pt/Fam, Lab and Imaging orders, Results/Orders obtained and Staff clarify orders Special Needs: Heart tones Established Patient Charge Established Patient Point Assignment: 110 Established Patient Point Charge: EP Level 3 (80-115) Assessment & Plan Diagnosis / Problem List (1) Maternal care for excessive growth, third trimester, not applicable or unspecified: Status: Acute (2) Cystic fibrosis carrier: Status: Acute (3) Supervision of high risk , unspecified, third trimester: Status: Acute Plan Problem List - Cystic fibrosis carrier - History of miscarriage Assessment 38-week and 1-day intrauterine with estimated due date of May 31 in a 1, para 0 patient with history of one miscarriage and cystic fibrosis carrier status. heart rate is normal at 150-151 beats per minute with reported activity. Plan - Follow up next week for routine visit - At next appointment, will check cervix and perform membrane sweep to help with labor - Return to hospital if contractions are closer than 5 minutes apart, any leaking, any bleeding, or if baby is not active for more than 1-2 hours at a time - If baby is less active, try to stimulate movement by drinking something sweet, playing music on abdomen, or using vibration - Complete registration at hospital main door window with ID and insurance (takes 2 minutes) 1. Progress Reviewed gestational age at 38 weeks and 1 day, growth, and heart rate of 150-151 bpm (normal). Planned frequent visits with next appointment scheduled for next week. 2. Instructed patient to monitor movements and report decreases immediately. Educated that babies go through sleep cycles for up to 2 hours, and if less active, to try waking baby with sweet drinks, music, or vibration. 3. Testing Counseled on routine third-trimester labs per guidelines. Discussed potential need for ultrasound or monitoring based on risk factors. 4. Preeclampsia Precaution Educated on preeclampsia signs: severe headache, vision changes, right upper quadrant pain, sudden swelling. Advised urgent reporting of symptoms and discussed blood pressure monitoring if high risk. 5. Labor Precautions Reviewed labor signs including contractions closer than 5 minutes apart, bleeding, and fluid leakage. Instructed to seek immediate care for these symptoms. 6. Lifestyle and Delivery Preparation Reinforced vitamins, nutrition, and safe activity. Discussed plan, pain management, and . Advised on labor preparation including hospital registration process and expectations. Planned cervical check and membrane sweep at next appointment to help with labor. 7. Psychosocial Support Assessed emotional well-being and offered resources for mental health or parenting support.
== END 2025-05-18 11:40 | disposition home or self-care (01) ==
LOC: HODSOBC 10:49
PROVIDERS: Supervising Provider Obstetrics & Gynecology; Visit Provider Obstetrics & Gynecology
DX: O09.893 Supervision of other high risk pregnancies, third trimester (principal); O36.63X0 Maternal care for excessive fetal growth, third trimester, not applicable or unspecified; O09.293 Supervision of pregnancy with other poor reproductive or obstetric history, third trimester; Z3A.38 38 weeks gestation of pregnancy; Z14.1 Cystic fibrosis carrier
CPT/HCPCS: 99213; G0463

== ENCOUNTER 2025-05-27 11:25 | Outpatient (AMB) | payer BC, MEDICAID, SELFPAY ==
[2025-05-27 11:32] VITALS: BP 126/82; PULSE 116; RESP 18; TEMP 36.2; O2SAT 98; BMI 30.8
--- NOTE | 2025-05-27 11:32 | OBCLNT_ITS ---
Vital Signs 05/27/25 11:32 Height 1.7 m Height Method Stated Weight 89.074 kg Weight Measurement Method Standing Scale BMI 30.8 BP 126/82 Blood Pressure Source Automatic Cuff Blood Pressure Location Left Upper Arm Position Sitting Respiration 18 Pulse 116 H Pulse Source Monitor Temp 97.2 F Temp Source Oral Pulse Oximetry (%) 98 Oxygen Delivery Method Room Air Allergies/Home Meds Allergies & Medications Allergies No Known Drug Allergies Allergy (Verified 05/27/25 11:33) Medication Reconciliation No Known Home Medications 03/29/25 [History Confirmed 05/27/25] Immunizations Immunizations Flu Vaccine in the Last 12 Months: No Flu Vaccine Exclusion Criteria: No Exclusion Criteria Care OB Visit Log OB Flowsheet Initial Weight: Not Recorded Date -?-?-?-?-?-?-?-?-?-?-?-?- EGA Weight BP Alb Glu CTX Pres Fundal ht FHR Mov Dilation Station Effacement Hx Notes Visit Note 03/29/25 -?-?-?-?-?-?-?-?-?-?-?-?- 31w 0d 83.007 kg 126/79 absent cephalic 143 Debbie Chacon, at 31 weeks gestation, presents for transfer of care from Dr. Torres. EAGLE is 05/31/2025 based on a 9w3d ultrasound. has been uncomplicated. 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 heart rate today is 143 bpm. Labs including NIPT, CBC, OB panel, STI screen, and glucose tolerance test (130) are normal. Recent ultrasound suggests fetus may be >9 lbs at term. Patient is expecting a male infant named Colby. Intrauterine at 31 weeks: Continue care. Follow-up in 2 weeks, then weekly at 36 weeks. Plan for ultrasound on 05/06/2025 to assess growth. GBS culture and cervical check at 36 weeks. Consider induction at 39 weeks if large for gestational age. CF carrier status: No further testing ne eded (partner negative). Labs: All labs within normal li mits. Continue routine monitoring. 04/19/25 -?-?-?-?-?-?-?-?-?-?-?-?- 34w 0d 85.899 kg 109/70 absent cephalic 145 - Debbie Chacon is a 2 para 1 female at 34 weeks and 0 days gestation presenting for routine visit. - She is a cystic fibrosis carrier. - She reports no contractions or issues. - She has work-related paperwork that ne eds to be completed with a requested start date of May 06. - G BS culture to be performed at next appointment - Follow-up appointment scheduled in 2 w eeks - Work forms completed with start date o f May 06, extending to 6 weeks with ability to amend dates as needed 05/04/25 -?-?-?-?-?-?-?-?-?-?-?-?- 36w 1d 88.054 kg 107/71 absent cephalic 150 - She reports that the baby is active. - She denies any leaking or bleeding. - weight was estimated at 6 pounds 14 ounces at current gestational age. - Baby is noted to be in head-down posit ion, which represents a change from the previous visit when the baby was not head-down. - Continue weekly visits - Obtain and scan [facility]'s Repo rt - [facility] - Complete and sign family medical leave paperwork for patient's employer ([employer]) - Schedule next appointment for followin g week 05/18/25 -?-?-?-?-?-?-?-?-?-?-?-?- 38w 1d 90.378 kg 115/72 absent cephalic 38 145 - She reports the baby is active and denies any signs of labor onset. - She denies contractions that are close r than 5 minutes apart. - She denies any leaking of fluid or ble eding. - She denies decreased movement lasting more than 1-2 hours a t a time. - Follow up next week for routine visit - At next appointment, will check cervix and perform membrane sweep to help with labor - Return to hospital if contractions are closer than 5 minutes apart, any leaking, any bleeding, or if baby is not active for more than 1-2 hours at a time - If baby is less active, try to stimula te movement by drinking something sweet, playing music on abdomen, or using vibration - Complete registration at hospital main door window with ID and insurance (takes 2 minutes) 05/27/25 -?-?-?-?-?-?-?-?-?-?-?-?- 39w 3d 89.074 kg 126/82 absent cephalic 40 155 - She reports no contractions at this time. - She describes the baby as active. - She reports back pain that has limited her walking activity. - States she hasn't been walking as mu due to back discomfort but acknowledges she needs to start walking more. - She has a bouncing ball available for exercises. - She denies going into labor during rec ent birthdays as she had previously stated she would not deliver on those dates. - Schedule induction at 41 weeks if spontaneous labor does not occur - Continue walking for exercise to help with labor onset - Use birthing ball for 10-15 minutes, 2 -3 times daily to help baby's head engage - Follow up in one week - If labor begins before next appointmen t, proceed to hospital EAGLE Calculator Estimated Delivery Date Method Current WG Current Estimate 05/31/25 Ultrasound #1 39w 5d Other Estimates 05/20/25 LMP (Certain) 41w 2d 05/25/25 Ultrasound #2 40w 4d Notes Visit Date: 03/29/25 Last Updated by: Eldon De Souza MD - Ultrasound (10/29/2024): Gestational age 9 weeks and 3 days, EAGLE 05/31/2025 - Date: 12/01/2024 (1st OB panel) - Urinalysis: Within normal limits - NIPT: Negative for trisomy, sex male - CBC: Hemoglobin 11.4 g/dL, Hematocrit 35.1%, Platelets 200 - Urine drug screen: Negative - Hepatitis A, B, and C: Negative - Gonorrhea and chlamydia: Negative - Blood group: A positive - Rh factor: Positive - RPR: Nonreactive - Hemoglobin A1C: 4.8% - Rubella: Immune - HIV: Nonreactive - Date: 01/11/2025 (2nd lab panel) - SMA: Negative - AFP: Negative - CF screening: Positive, patient heterozygous for one cystic fibrosis gene - Date: 02/18/2025 - CBC: Hemoglobin 11.7 g/dL, Hematocrit 36.6%, Platelets 205 - Urinalysis: Within normal limits - Gonorrhea and chlamydia: Negative - RPR: Nonreactive - Gestational diabetes one-hour screen: 130 mg/dL Office Procedures OBC Clinic LOC & Office Proc's Nursing/Assessment Patient Status: Established Patient OB Clinic Nursing Assessment: Medication Reconciliation, Update PMH in EMR and Vital Signs OB Clinic Coordination of Care: Consent,records obtained, informed consent, Education Simp Pt/Fam, Lab and Imaging orders, Results/Orders obtained and Staff clarify orders Special Needs: Heart tones Established Patient Charge Established Patient Point Assignment: 110 Established Patient Point Charge: EP Level 3 (80-115) Assessment & Plan Diagnosis / Problem List (1) Maternal care for excessive growth, third trimester, not applicable or unspecified: Status: Acute (2) Cystic fibrosis carrier: Status: Acute (3) Supervision of high risk , unspecified, third trimester: Status: Acute Plan Problem List - at 39 weeks and 2 days gestation - Back pain Assessment at 39 weeks and 2 days gestation presenting for routine visit. Patient reports no contractions at this time. heart rate is 159 bpm, which is within normal limits. Patient reports decreased walking activity due to back pain. movement is active and reassuring. Patient is approaching 41 weeks gestation threshold. Plan - Schedule induction at 41 weeks if spontaneous labor does not occur - Continue walking for exercise to help with labor onset - Use birthing ball for 10-15 minutes, 2-3 times daily to help baby's head engage - Follow up in one week - If labor begins before next appointment, proceed to hospital 1. Progress Reviewed gestational age at 39 weeks and 2 days, growth, and heart rate of 159 bpm (normal). Planned weekly visits with induction scheduled at 41 weeks if spontaneous labor does not occur. 2. Instructed patient to monitor movements and report decreases im mediately. 3. Testing Counseled on routine third-trimester labs per guidelines. Discussed potential need for ultrasound or monitoring based on risk factors. 4. Preeclampsia Precaution Educated on preeclampsia signs: severe headache, vision changes, right upper quadrant pain, sudden swelling. Advised urgent reporting of symptoms and discussed blood pressure monitoring if high risk. 5. Labor Precautions Reviewed labor signs: regular contractions, pelvic pressure, back pain, bleeding, or fluid leakage. Instructed to seek immediate care for these symptoms. 6. Lifestyle and Delivery Preparation Reinforced vitamins, nutrition, and safe activity including walking despite back pain. Discussed natural labor induction methods including use of birthing ball (10-15 minutes, 2-3 times daily), spicy foods, and sexual intercourse due to prostaglandins in semen. Advised on labor preparation and discussed induction planning for 41 weeks if spontaneous labor does not occur. 7. Psychosocial Support Assessed emotional well-being and offered resources for mental health or parenting support.
== END 2025-05-27 11:55 | disposition home or self-care (01) ==
LOC: HODSOBC 11:25
PROVIDERS: Supervising Provider Obstetrics & Gynecology; Visit Provider Obstetrics & Gynecology
DX: O09.893 Supervision of other high risk pregnancies, third trimester (principal); O36.63X0 Maternal care for excessive fetal growth, third trimester, not applicable or unspecified; Z3A.39 39 weeks gestation of pregnancy; Z14.1 Cystic fibrosis carrier; O99.891 Other specified diseases and conditions complicating pregnancy; M54.9 Dorsalgia, unspecified
CPT/HCPCS: 99213; G0463

== ENCOUNTER 2025-05-30 07:05 | Observation (INO) | payer BC, MEDICAID, SELFPAY ==
[2025-05-30 07:14] VITALS: BP 127/60; PULSE 75; RESP 18; RESP 99; TEMP 36.4; BMI 31.2
[2025-05-30 07:27] VITALS: BP 127/60; PULSE 75
[2025-05-30 07:43] VITALS: BP 108/58; PULSE 86
--- NOTE | 2025-05-30 08:11 | XR_ITS ---
Examination: Biophysical profile, ultrasound Date and time of exam: May 30, 2025, 0846 hours INDICATIONS: Preop term induction today Technique: Multiple transabdominal sonographic images of the pelvis abdomen obtained. Attention is directed to the breathing movement, gross body movement, amniotic fluid volume and tone. Findings: Amniotic fluid index 7.7 cm Total biophysical profile is 8 of 8. breathing movement is 2. Gross body movement is 2. tone is 2. Qualitative amniotic fluid volume is 2 Impression: Biophysical profile is 8 of 8.
[2025-05-30 09:19] VITALS: BP 117/56; PULSE 76
== END 2025-05-30 09:50 | disposition home or self-care (01) ==
PROVIDERS: Admitting Provider Obstetrics & Gynecology; Visit Provider Obstetrics & Gynecology
DX: O47.1 False labor at or after 37 completed weeks of gestation (principal); Z3A.39 39 weeks gestation of pregnancy
CPT/HCPCS: 59025; 59899; 76819

== ENCOUNTER 2025-05-31 07:53 | Observation (INO) | payer BC, MEDICAID, SELFPAY ==
[2025-05-31] VITALS (9 sets, daily range): BP systolic 119; BP diastolic 72; PULSE 78–120; RESP 18–97; TEMP 36.8; O2SAT 97–99; BMI 30.8
--- NOTE | 2025-05-31 08:50 | XR_ITS ---
EXAMINATION: age Limited TECHNIQUE: Limited transabdominal sonographic images pelvis Date and time: May 31, 2025, 0905 hours INDICATIONS: Labor evaluation today, unknown presentation and weight FINDINGS: presentation Vertex Cardiac motion 145 bpm Amniotic fluid index 12.1 cm Estimated weight 3421 g IMPRESSION: Viable intrauterine gestation vertex presentation
== END 2025-05-31 10:00 | disposition home or self-care (01) ==
PROVIDERS: Admitting Provider Obstetrics & Gynecology; Visit Provider Obstetrics & Gynecology
DX: O47.1 False labor at or after 37 completed weeks of gestation (principal); Z3A.40 40 weeks gestation of pregnancy
CPT/HCPCS: 59899; 76815; A9270

== ENCOUNTER 2025-06-01 00:03 | Inpatient (IN) | payer BC, MEDICAID, SELFPAY ==
[2025-06-01] VITALS (235 sets, daily range): BP systolic 0–150; BP diastolic 0–112; PULSE 54–159; RESP 16–97; TEMP 36.6–37.9; O2SAT 62–100; BMI 30.5
[2025-06-01 00:46] LABS: ROM Kit Lot # 58106258
[2025-06-01 00:47] LABS: ROM Swab Mixed By: CARMP2; Rupture of Fetal Membranes Negative (Negative); Swb Mxed in Solvent 1 min? Yes
[2025-06-01 01:14] LABS: ROM Kit Exp Date# 04/11/28; ROM Kit Lot # 58106258; Swb Mxed in Solvent 1 min? Yes
[2025-06-01 01:20] LABS: Rupture of Fetal Membranes Negative (Negative)
[2025-06-01] MEDS: RINGERS LACTATED 1000 ML 1,000 ML 125 ML IV ×4 (02:04→12:50)
[2025-06-01 02:12] LABS: Basophils # (Auto) 0.0 Thou/mm3 (0.0-0.2); Basophils % (Auto) 0 % (0-2.5); Eosinophils # (Auto) 0.0 Thou/mm3 (0.0-0.5); Eosinophils % (Auto) 0 % (0-10); Hematocrit 35.7 % (36.0-46.0); Hemoglobin 12.2 g/dL (12.0-16.0); Immature Granulocytes Auto 0.06 Thou/mm3 (0.00-0.00); Lymphocytes # (Auto) 0.8 Thou/mm3 (1.0-4.8); Lymphocytes % (Auto) 7 % (10-50); Mean Corpuscular HGB Conc 34.2 g/dl (31.0-37.0); Mean Corpuscular Hemoglobin 30.9 pg (25.0-35.0); Mean Corpuscular Volume 90 fL (80-100); Monocytes # (Auto) 0.8 Thou/mm3 (0.0-0.8); Monocytes % (Auto) 7 % (0-12); Neutrophils # (Auto) 9.7 Thou/mm3 (1.8-7.7); Neutrophils % (Auto) 85 % (37-80); Nucleated Red Blood Cell # 0.00 Thou/mm3 (0.00-0.00); Nucleated Red Blood Cell % 0 /100 WBC (0); Platelet Count 244 Thou/mm3 (140-440); RDW Standard Deviation 46.3 fL (36.4-46.3); Red Blood Count 3.95 Miln/mm3 (4.00-5.20); White Blood Count 11.4 Thou/mm3 (3.6-11.0)
[2025-06-01 02:49] LABS: Syphilis Nonreactive (Nonreactive)
[2025-06-01] MEDS: OXYTOCIN in NS 30 units 30 UNIT/500 ML BAG IV (06:35)
--- NOTE | 2025-06-01 07:02 | ESHP_ITS ---
Documentation for date of: 06/01/25 OB Labor/Induct. HPI History of Present Illness Chief complaint: Labor : 2 Para: 0 Term pregnancies: 0 pregnancies: 0 Living children: 0 History of Abortions: Spontaneous and Elective: 1 History of Vaginal deliveries: 0 History of sections: No History of : No Date of last menstrual period: 08/13/24 EAGLE: 05/31/25 Gestational Age (weeks): 40 Gestational Age (days): 1 Gestational age based on last menstrual period: 41 History of present illness: The patient is a 34-year-old -0-1-0 at 40 1/7 weeks admitted in early labor approximately 2:00 in the morning. She was 3 cm dilated 100% with -2 station and intact. She had some bloody show. Her has been uncomplicated and she is healthy. She is a carrier for cystic fibrosis. She states her recent ultrasound reveals a 7 pound baby. By abdominal palpation I suspect an 8-1/2 pound baby. Patient was in triage 2 days in a row with early contractions. She had an epidural placed after admission and Pitocin started this midnight. She started her care with Dr. Torres and transferred to the [facility] OB clinic at about 32 weeks. History of Present Dating criteria: LMP confirmed by 2nd trimester US Adequate Care: Yes Ultrasounds: normal mid trimester US Obstetrical complications: none Medical complications: none Labs Maternal Blood Type: A Pos Labs: Positive: Rubella Titre, Negative: RPR, HIV, Chlamydia, Gonorrhea and Group Beta Strep and Unknown: Herpes Type 1 and Herpes Type 2 Past Medical History Surgical History SURGICAL: Negative Section Past Medical History Comments PMH COMMENT: Patient has no significant past medical history except she is a cystic fibrosis carrier Meds Home Medications and Allergies Home Medications ?Medication ?Instructions ?Recorded ?Confirmed ?Type vit no.95-ferrous 1 tab PO QDAY 05/31/2505/23 History fumarate 28 mg-folic acid 800 mcg tablet () Allergies Allergy/AdvReac Type Severity Reaction Status Date / Time No Known Drug Allergies Allergy Verified 06/01/25 00:14 OB Exam Physical Exam Vital signs: Temp Pulse Resp BP Pulse Ox O2 Del Method 98.7 F 59 L 16 122/56 L 97 Room Air 06/01/25 05:15 06/01/25 06:35 06/01/25 05:15 06/01/25 06:35 06/01/25 06:59 06/01/25 05:15 Detailed Labor and Delivery Exam Effacement (%): 100 Cervix position: mid station: -2 Consistency: soft Presentation: Vertex Membranes: intact monitor accelerations: 15x15 monitor decelerations: None long-term variability: Moderate (11-25) Contraction frequency (min): Every 5 minutes Tachysystole: No Contraction intensity: Moderate OB Results Labs 06/01/25 01:55 Labs: Short CBC 06/01/25 Range/Units 01:55 WBC 11.4 H (3.6-11.0) Thou/mm3 Hgb 12.2 (12.0-16.0) g/dL Hct 35.7 L (36.0-46.0) % Plt Count 244 (140-440) Thou/mm3 OB Assessment & Plan Assessment and Plan (1) Supervision of high risk , unspecified, third trimester: Status: Acute Assessment and plan: Patient admitted. Epidural given. On Pitocin augmentation. (2) Cystic fibrosis carrier: Status: Acute (3) Maternal care for excessive growth, third trimester, not applicable or unspecified: Status: Acute Additional Plan Induction method: per pitocin protocol Plan: augmentation and anticipate NVD
[2025-06-01] MEDS: ACETAMINOPHEN 500 MG TABLET 1000 MG PO (13:03)
[2025-06-01] MEDS: OXYTOCIN in NS 20 units 20 UNIT/1,000 ML BAG 125 UNIT IV (15:30)
[2025-06-01] MEDS: LIDOCAINE HCL 1% 20 ML VIAL INFL (15:33)
[2025-06-01] MEDS: MINERAL OIL 30 ML UDC TOP (15:33)
[2025-06-01] MEDS: BENZO/LANO/ALOE (Dermoplast) 60 GM CAN 1 SPRAY TOP (15:57)
[2025-06-01] MEDS: IBUPROFEN TAB 400 MG TABLET 800 MG PO ×2 (15:58→20:15)
[2025-06-01] MEDS: cefTRIAXone/D5w 1gm IV premix 1 GM/50 ML BAG IV (18:26)
--- NOTE | 2025-06-02 00:04 | OBDSUM_ITS ---
Vacuum Assisted Delivery General Patient Counseled by physician:: Yes Informed consent to patient:: Yes Estimated weight:: 8000 g Cervical dilation:: fully dilated station:: +3 position:: OA Molding:: No Caput:: No Asynclitism and attitude:: slightly deflexd Vacuum Application Vacuum type:: Kiwi Vacuum application:: deflexing median Maximum pressure (cm Hg):: 600 Cup Placement Flexion point identified:: Yes Cup approp. 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 Additional Comments Additional comments: total time <10 minutes Data (Curiel) Data Hx Section: No Maternal Blood Type: A Pos Rubella Titre: Positive RPR: Non-reactive : 2 Term: 0 : 0 Livin Abortions: Spontaneous & Theraputic: 1 Delivery Data (Curiel) Labor Data Initiation of labor: Augmentation Induction/Augmentation Agent: Pitocin and Artificial ROM ROM date: 06/01/25 ROM time: 08:41 Amniotic membrane rupture type: Spontaneous Amniotic fluid description: Light Meconium Delivery Data EDC: 05/31/25 Onset of labor date: 06/01/25 Onset of labor time: 08:40 Complete dilation date: 06/01/25 Complete dilation time: 10:45 [place] delivery date: 06/01/25 delivery time: 15:30 Gestational age (weeks): 40 Gestational age (days): 1 Placenta delivery date: 06/01/25 Placenta delivery time: 15:34 Stage 1 total time: Labor - Stage 1 Duration 2 hours and 5 minutes Delivered by: Maggi Delivery nurse: [email or web address] [place] nurse: [email or web address] Sap Bw Developer at delivery: Yes (Nick) Support person(s) at delivery: FOB, maternal sister Delivery Method Delivery method: Operative Vaginal Delivery (indication was category 2 FHRate / meconium and prolonged second stage / Patient consent was obtained after informing of Risks and benefits and options/ She declined a C section / A kiwi Vaccuum was used and one pop off/ Pressures always in the green zone / Successful extraction in less than 10 marshall) Presentation: Vertex position: ABBY Anesthesia Type Anesthesia Type: Local and Epidural Delivery Room Medications Delivery room medications: Pitocin 20 u IV and Cytotec 800 MA Placenta Placenta delivery description: Spontaneous Cord blood sent to lab: Yes cord blood collection: Cord Blood Type Episiotomy Episiotomy description: 10 degree right midline Perineal repair Sutures used for repair: 3.0 Vicryl EBL Estimated blood loss (ml): 200 Umbilical Cord cord description: 3 Vessels Complications Complications: none Data (Curiel) [place] Data order: 1 [place]'s gender: Male Identification band number: [id number] weight (gms): 3545 g Weight (pounds): 7 lbs and 13.0 ozs length: 55.88 cm 1 minute: 8 5 minutes: 9 Additional Comments Additional comments: Patient had the Estrada dflated and also had descent with each pull of the vaccuum / total 3 pulls and one pop off station at application was +3/5 EFw was 8 lbs
[2025-06-02 03:39] VITALS: BP 101/64; PULSE 75; RESP 16; TEMP 36.7; O2SAT 95
[2025-06-02 06:02] LABS: Basophils # (Auto) 0.1 Thou/mm3 (0.0-0.2); Basophils % (Auto) 0 % (0-2.5); Eosinophils # (Auto) 0.1 Thou/mm3 (0.0-0.5); Eosinophils % (Auto) 0 % (0-10); Hematocrit 31.7 % (36.0-46.0); Hemoglobin 10.6 g/dL (12.0-16.0); Immature Granulocytes Auto 0.05 Thou/mm3 (0.00-0.00); Lymphocytes # (Auto) 1.4 Thou/mm3 (1.0-4.8); Lymphocytes % (Auto) 9 % (10-50); Mean Corpuscular HGB Conc 33.4 g/dl (31.0-37.0); Mean Corpuscular Hemoglobin 30.9 pg (25.0-35.0); Mean Corpuscular Volume 92 fL (80-100); Monocytes # (Auto) 1.0 Thou/mm3 (0.0-0.8); Monocytes % (Auto) 6 % (0-12); Neutrophils # (Auto) 13.5 Thou/mm3 (1.8-7.7); Neutrophils % (Auto) 84 % (37-80); Nucleated Red Blood Cell # 0.00 Thou/mm3 (0.00-0.00); Nucleated Red Blood Cell % 0 /100 WBC (0); Platelet Count 189 Thou/mm3 (140-440); RDW Standard Deviation 48.7 fL (36.4-46.3); Red Blood Count 3.43 Miln/mm3 (4.00-5.20); White Blood Count 16.1 Thou/mm3 (3.6-11.0)
[2025-06-02 08:17] VITALS: BP 126/77; PULSE 88; RESP 17; TEMP 36.8; O2SAT 97
[2025-06-02] MEDS: IBUPROFEN TAB 400 MG TABLET 800 MG PO (08:58)
[2025-06-02 11:31] VITALS: BP 126/78; PULSE 86; RESP 17; TEMP 36.6; O2SAT 97
[2025-06-02 15:51] VITALS: BP 139/82; PULSE 83; RESP 19; TEMP 36.6; O2SAT 97
--- NOTE | 2025-06-02 17:15 | ESPR_ITS ---
Subjective Subjective Interval history: The patient is a 34-year-old -0-1-1 day 1 status post vacuum- assisted vaginal delivery by Dr. Tay approximately 4:00 yesterday afternoon. Today the patient is ambulating around the room. She had an episiotomy and states she is doing well. Her bleeding is minimal. She is voiding. She is breast-feeding. She would like to go home. Exam Vital Signs Temp Pulse Resp BP Pulse Ox O2 Del Method 97.8 F 83 19 139/82 H 97 Room Air 06/02/25 15:51 06/02/25 15:51 06/02/25 15:51 06/02/25 15:51 06/02/25 15:51 06/02/25 15:51 Narrative Exam Patient is alert and orient x 3 in no apparent distress Her fundus is firm at umbilicus. Extremities show no significant edema or erythema. Objective Labs 06/02/25 05:39 Labs: Laboratory Results - last 24 hr 06/02/25 05:39 WBC 16.1 H D RBC 3.43 L Hgb 10.6 L Hct 31.7 L MCV 92 MCH 30.9 MCHC 33.4 RDW Std Deviation 48.7 H Plt Count 189 D Neut % (Auto) 84 H Lymph % (Auto) 9 L Archer % (Auto) 6 Eos % (Auto) 0 Baso % (Auto) 0 Neut # (Auto) 13.5 H Lymph # (Auto) 1.4 Archer # (Auto) 1.0 H Eos # (Auto) 0.1 Baso # (Auto) 0.1 Immature Gran # (Auto) 0.05 H Absolute Nucleated RBC 0.00 Immature Gran % 0 Nucleated RBC % 0 Assessment & Plan Problem List (1) Cystic fibrosis carrier: Status: Acute (2) care following vaginal delivery: Problem details: Patient will be discharged home day #1 in stable condition. Discharge instructions given. Follow-up in clinic in 2 to 6 weeks. Status: Acute Time Spent With Patient Time: Total time spent is greater than 50% in coordination of care (as documented) at patient's floor/unit and/or counseling patient: Time with patient: less than 15 minutes
--- NOTE | 2025-06-02 17:18 | ESDS_ITS ---
DS: Providers Provider Date of admission: 06/01/25 01:54 Primary care physician: Physician No Primary/Family Admitting Provider: Trish [facility] ([facility]) Attending Provider on Admission: Eldon De Souza MD Consults: 06/01/25 17:44 Referral Routine Comment: Attending Provider on DC: Trish Lee MD ([facility]) Discharging Provider: Trish Lee MD ([facility]) Anticipated date of discharge: 06/02/25 DS: Diagnosis Discharge Diagnosis (1) care following vaginal delivery: Status: Acute Assessment & Plan: Discharge instruction given. Follow-up in 6 weeks. (2) Cystic fibrosis carrier: Status: Acute Problem List Completed Was Problem List Reviewed/Reconciled?: Yes Summary/Hosp Course Brief History: The patient is a 34-year-old -0-1-0 at 40 1/7 weeks admitted in early labor approximately 2:00 in the morning. She was 3 cm dilated 100% with -2 station and intact. She had some bloody show. Her has been uncomplicated and she is healthy. She is a carrier for cystic fibrosis. She states her recent ultrasound reveals a 7 pound baby. By abdominal palpation I suspect an 8-1/2 pound baby. Patient was in triage 2 days in a row with early contractions. She had an epidural placed after admission and Pitocin started this midnight. She started her care with Dr. Torres and transferred to the [facility] OB clinic at about 32 weeks. Patient was admitted by Dr. Nilda Lee. Please see history and physical for further details. She underwent a vacuum-assisted vaginal delivery by Dr. Tay the afternoon of 06/01/2025. Please see delivery note for further details. Her course was uncomplicated. By post day #1, the patient was ambulating, voiding, tolerating a general diet and passing flatus. She was breast-feeding. She was discharged home day #1 in stable condition Peripartum Data Delivery Method: Operative Vaginal Delivery (indication was category 2 FHRate / meconium and prolonged second stage / Patient consent was obtained after informing of Risks and benefits and options/ She declined a C section / A kiwi Vaccuum was used and one pop off/ Pressures always in the green zone / Successful extraction in less than 10 marshall) Episiotomy Description: 10 degree right midline Laceration Description: see Delivery Summary complications: none Status at Discharge Cognitive/behavioral status at discharge: Patient is alert and orient x 3 in no apparent distress Functional status at discharge: independent ambulation Overall status at discharge: patient is progressing back to baseline Time Spent with Patient Time attestation: Total time spent providing and/or coordinating discharge services: Time spent: Less than 30 minutes Specific discharge activities: Pelvic rest x 6 weeks. No intercourse tampons douching or bathtubs x 6 weeks. Exam Vital Signs Temp Pulse Resp BP Pulse Ox O2 Del Method 97.8 F 83 19 139/82 H 97 Room Air 06/02/25 15:51 06/02/25 15:51 06/02/25 15:51 06/02/25 15:51 06/02/25 15:51 06/02/25 15:51 Narrative Exam Patient is alert and oriented x 3 in no apparent distress fundus is firm at umbilicus extremities show no significant edema or erythema. Discharge Plan Plan Patient Disposition: HOME (Self Care) Patient condition on transfer: Stable Prescriptions/Referrals Prescriptions/Med Rec: New acetaminophen 325 mg Tablet 650 mg PO Q4H PRN (Reason: See Comments) Qty: 60 0RF ibuprofen 400 mg Tablet 800 mg PO Q8H PRN (Reason: See Comments) Qty: 60 0RF Continued PNV no.95-ferrous fumarate-FA [] 28 mg iron- 800 mcg tablet 1 tab PO QDAY Patient Comments: TAKE 1 TABLET BY MOUTH EVERY DAY Referrals: No Primary/Family,Physician [Primary Care Provider] Patient/Caregiver Discharge Instructions Discharge Activity: activity as tolerated Other Discharge Activity Instructions:: Pelvic rest x 6 weeks. No intercourse, tampons, douching, or bathtubs x 6 weeks. Other Discharge Diet Instructions: General diet as tolerated Education Materials: After Delivery [place] Concerns, Breast Care After , : Caring for Yourself, Feel Healthy After Print Language: Filipino Activity Restrictions/Additional Instructions: Call for fevers, heavy vaginal bleeding or severe depression. Call t clinic to follow-up in 2 to 6 weeks. Stand Alone Forms: Jessie Award Info., Patient Portal Info Letter Discharge Order Discharge Orders: Discharge (Routine); Ordered 06/02/25 Ordered By: Trish Lee ([facility]) Planned Discharge Date 06/02/25
== END 2025-06-02 20:06 | disposition home or self-care (01) | DRG 807 ==
LOC: S4SX 07:56 → S4NX 20:00
PROVIDERS: Obstetrics & Gynecology; Admitting Provider Obstetrics & Gynecology; Visit Provider Obstetrics & Gynecology
DX: O36.63X0 Maternal care for excessive fetal growth, third trimester, not applicable or unspecified (principal); Z37.0 Single live birth; O63.1 Prolonged second stage (of labor); Z14.1 Cystic fibrosis carrier; O77.0 Labor and delivery complicated by meconium in amniotic fluid; O48.0 Post-term pregnancy; Z3A.40 40 weeks gestation of pregnancy
CPT/HCPCS: 36415; 59025; 59409; 84112; 85025; 86780; 86850; 86900; 86901; 94762; J0696; J2590; J2795; J3010; J3490; J7120; S0191; A9270